=== PATIENT | female | born 1960 | race African-American/Black ===

== ENCOUNTER 2020-03-14 15:17 | Inpatient (IN) | payer MEDICAID, OTHER ==
[~2020-03-14] VITALS: Ht 157.5 cm; Wt 83.0 kg
[2020-03-14] MEDS ORDERED: SODIUM CHLORIDE 0.9% 500 ML IV ONE (15:28)
[2020-03-14 16:05] LABS: CHLORIDE 105 mEq/L (98-107)
[2020-03-14 16:06] LABS: BASOPHILS % 0.5 % (0.0-2.0); EOSINOPHILS % 1.1 % (0.0-5.0); HEMATOCRIT. 41.6 % (36.0-48.0); HEMOGLOBIN. 13.5 g/dL (12.0-16.0); LYMPHOCYTES % 25.4 % (20.0-50.0); MEAN CORPUSCULAR HEMOGLOBIN 27.5 pg (28.0-32.0); MEAN CORPUSCULAR VOLUME 84.4 fL (81.0-99.0); MEAN PLATELET VOLUME 7.2 fl (7.4-10.4); MONOCYTES % 8.2 % (2.0-8.0); NEUTROPHILS % 64.8 % (40.0-76.0); PLATELET 272 x1000/uL (130-400); RED BLOOD CELL COUNT 4.93 mill/uL (4.2-5.4); RED CELL DISTRIBUTION WIDTH 13.6 % (11.6-14.6)
[2020-03-14 16:09] LABS: ETHANOL BLOOD < 10 mg/dL
[2020-03-14 18:46] LABS: CLARITY URINE CLOUDY (CLEAR); COLOR URINE YELLOW (YELLOW); KETONES URINE NEGATIVE (NEGATIVE); LEUKOCYTE ESTERASE URINE 3+ (NEGATIVE); NITRITE URINE NEGATIVE (NEGATIVE); OCCULT BLOOD URINE NEGATIVE (NEGATIVE); PROTEIN URINE NEGATIVE (NEGATIVE); SPECIFIC GRAVITY URINE 1.003 (1.005-1.030)
[2020-03-14 19:02] LABS: *BARBITURATES SCREEN URINE NEGATIVE (NEGATIVE); *BENZODIAZEPINES SCREEN URINE NEGATIVE (NEGATIVE)
[2020-03-14 19:03] LABS: *AMPHETAMINES SCREEN URINE NEGATIVE (NEGATIVE); *COCAINE SCREEN URINE NEGATIVE (NEGATIVE); METHADONE URINE SCREEN NEGATIVE (NEGATIVE); OPIATES URINE SCREEN NEGATIVE (NEGATIVE); PHENCYCLIDINE URINE SCREEN NEGATIVE (NEGATIVE)
[2020-03-14 19:04] LABS: CANNABINOID URINE SCREEN NEGATIVE (NEGATIVE)
[2020-03-14] MEDS ORDERED: CEFTRIAXONE 1 G PREMIX 50 ML IV ONE (19:15)
[2020-03-15 14:32] VITALS: BP 154/96
[2020-03-15 16:00] VITALS: BP_SYST 125; BP_SYST 129; BP_DIAS 79; BP_DIAS 85
[2020-03-15 16:22] VITALS: BP 119/88
[2020-03-15] MEDS ORDERED: ONDANSETRON HCL 4MG/2ML INJ IV PRN (16:30)
[2020-03-15] MEDS ORDERED: ACETAMINOPHEN 325MG TABLET PO PRN (16:30)
[2020-03-15] MEDS: ENOXAPARIN 40MG/0.4ML SYR SUBCUT SCH (17:48)
[2020-03-15 20:00] VITALS: BP 139/85
[2020-03-15] MEDS: CEFTRIAXONE 1 G PREMIX 50 ML IV SCH (22:00)
[2020-03-16] VITALS (7 sets, daily range): BP systolic 116–171; BP diastolic 72–97
[2020-03-16] MEDS ORDERED: CEFTRIAXONE SODIUM 1 G/VIAL IV SCH (09:00)
[2020-03-16] MEDS: CLOPIDOGREL 75MG TABLET PO SCH (09:53)
[2020-03-16] MEDS: ENOXAPARIN 40MG/0.4ML SYR SUBCUT SCH (17:56)
[2020-03-16] MEDS: CEFTRIAXONE 1 G PREMIX 50 ML IV SCH (21:00)
[2020-03-16] MEDS: AMLODIPINE 5MG TABLET PO SCH (21:58)
[2020-03-17] VITALS: BP 144/85
[2020-03-17 04:00] VITALS: BP 148/88
[2020-03-17 08:00] VITALS: BP 170/95
[2020-03-17] MEDS: CLOPIDOGREL 75MG TABLET PO SCH (09:33)
[2020-03-17] MEDS: AMLODIPINE 5MG TABLET PO SCH ×2 (09:33→22:50)
[2020-03-17 12:00] VITALS: BP 149/78
[2020-03-17] MEDS: LOSARTAN POTASSIUM 50 MG TABLET PO SCH (13:56)
[2020-03-17 16:00] VITALS: BP_SYST 105; BP_SYST 131; BP_DIAS 58; BP_DIAS 96
[2020-03-17] MEDS: ENOXAPARIN 40MG/0.4ML SYR SUBCUT SCH (17:14)
[2020-03-17 20:00] VITALS: BP 154/88
[2020-03-17] MEDS: CEFTRIAXONE 1 G PREMIX 50 ML IV SCH (22:50)
[2020-03-18 00:27] VITALS: BP 147/75
[2020-03-18 04:00] VITALS: BP 135/86
[2020-03-18 08:00] VITALS: BP 147/93
[2020-03-18] MEDS: AMLODIPINE 5MG TABLET PO SCH ×2 (08:45→21:18)
[2020-03-18] MEDS: LOSARTAN POTASSIUM 50 MG TABLET PO SCH (08:45)
[2020-03-18] MEDS: CLOPIDOGREL 75MG TABLET PO SCH (08:45)
[2020-03-18 12:00] VITALS: BP 139/86
[2020-03-18 16:00] VITALS: BP 124/68
[2020-03-18] MEDS: NITROFURANTOIN 100MG M/M CAPSULE PO SCH (16:07)
[2020-03-18] MEDS: ENOXAPARIN 40MG/0.4ML SYR SUBCUT SCH (16:27)
[2020-03-18 20:00] VITALS: BP 149/89
[2020-03-19] VITALS: BP 158/92
[2020-03-19 04:00] VITALS: BP 160/90
[2020-03-19] MEDS: CLONIDINE 0.1MG TABLET PO PRN ×2 (05:55→17:04)
[2020-03-19] MEDS: NITROFURANTOIN 100MG M/M CAPSULE PO SCH ×2 (06:02→17:03)
[2020-03-19 08:00] VITALS: BP 161/98
[2020-03-19] MEDS: CLOPIDOGREL 75MG TABLET PO SCH (08:12)
[2020-03-19] MEDS: LOSARTAN POTASSIUM 50 MG TABLET PO SCH ×2 (08:12→21:00)
[2020-03-19] MEDS: AMLODIPINE 5MG TABLET PO SCH ×3 (08:13→20:29)
[2020-03-19 12:00] VITALS: BP 162/85
[2020-03-19] MEDS ORDERED: CLOP75TA15 PO (12:52)
[2020-03-19] MEDS ORDERED: AMLO5TAB88 PO (12:52)
[2020-03-19] MEDS ORDERED: LOSA50TA3 PO (12:52)
[2020-03-19 16:00] VITALS: BP 165/96
[2020-03-19] MEDS: ENOXAPARIN 40MG/0.4ML SYR SUBCUT SCH (17:03)
[2020-03-19 19:59] VITALS: BP 142/82
[2020-03-20] VITALS: BP 164/90
[2020-03-20] MEDS: CLONIDINE 0.1MG TABLET PO PRN (00:40)
[2020-03-20 04:00] VITALS: BP 141/82
[2020-03-20] MEDS: NITROFURANTOIN 100MG M/M CAPSULE PO SCH ×2 (05:37→17:39)
[2020-03-20 08:00] VITALS: BP 133/72
[2020-03-20] MEDS: CLOPIDOGREL 75MG TABLET PO SCH (08:19)
[2020-03-20] MEDS: LOSARTAN POTASSIUM 50 MG TABLET PO SCH ×2 (08:19→21:11)
[2020-03-20 12:00] VITALS: BP 153/85
[2020-03-20 16:00] VITALS: BP 140/85
[2020-03-20] MEDS: ENOXAPARIN 40MG/0.4ML SYR SUBCUT SCH (17:39)
[2020-03-20 20:00] VITALS: BP 149/93
[2020-03-20] MEDS: AMLODIPINE 5MG TABLET PO SCH (21:11)
[2020-03-21 00:23] VITALS: BP 137/69
[2020-03-21 04:00] VITALS: BP 144/77
[2020-03-21] MEDS: NITROFURANTOIN 100MG M/M CAPSULE PO SCH ×2 (06:26→17:10)
[2020-03-21 08:00] VITALS: BP 147/88
[2020-03-21] MEDS: AMLODIPINE 5MG TABLET PO SCH ×2 (08:21→20:57)
[2020-03-21] MEDS: LOSARTAN POTASSIUM 50 MG TABLET PO SCH ×2 (08:21→20:57)
[2020-03-21] MEDS: CLOPIDOGREL 75MG TABLET PO SCH (08:21)
[2020-03-21 12:00] VITALS: BP 161/84
[2020-03-21] MEDS: CLONIDINE 0.1MG TABLET PO PRN (13:25)
[2020-03-21] MEDS ORDERED: HYDR-4135 MT (15:58)
[2020-03-21 16:00] VITALS: BP 144/85
[2020-03-21] MEDS: ENOXAPARIN 40MG/0.4ML SYR SUBCUT SCH (17:10)
[2020-03-21 20:00] VITALS: BP 150/95
[2020-03-21] MEDS: HYDRALAZINE HCL 50MG TABLET PO SCH (20:57)
[2020-03-22] VITALS: BP 135/81
[2020-03-22 04:00] VITALS: BP 137/85
[2020-03-22] MEDS: NITROFURANTOIN 100MG M/M CAPSULE PO SCH ×2 (06:45→17:08)
[2020-03-22 08:00] VITALS: BP 154/88
[2020-03-22] MEDS: AMLODIPINE 5MG TABLET PO SCH ×2 (08:25→21:02)
[2020-03-22] MEDS: HYDRALAZINE HCL 50MG TABLET PO SCH ×2 (08:25→21:02)
[2020-03-22] MEDS: CLOPIDOGREL 75MG TABLET PO SCH (08:25)
[2020-03-22] MEDS: LOSARTAN POTASSIUM 50 MG TABLET PO SCH ×2 (08:25→21:02)
[2020-03-22 12:00] VITALS: BP 154/91
[2020-03-22] MEDS: CLONIDINE 0.1MG TABLET PO PRN (13:07)
[2020-03-22 16:00] VITALS: BP 134/87
[2020-03-22] MEDS: ENOXAPARIN 40MG/0.4ML SYR SUBCUT SCH (17:08)
[2020-03-22 20:00] VITALS: BP 138/93
[2020-03-23] VITALS: BP 152/73
[2020-03-23 04:00] VITALS: BP 132/75
[2020-03-23] MEDS: NITROFURANTOIN 100MG M/M CAPSULE PO SCH (05:34)
[2020-03-23 08:00] VITALS: BP 146/95
[2020-03-23] MEDS: LOSARTAN POTASSIUM 50 MG TABLET PO SCH (08:50)
[2020-03-23] MEDS: HYDRALAZINE HCL 50MG TABLET PO SCH (08:50)
[2020-03-23] MEDS: AMLODIPINE 5MG TABLET PO SCH (08:50)
[2020-03-23] MEDS: CLOPIDOGREL 75MG TABLET PO SCH (08:50)
[2020-03-23 12:00] VITALS: BP 159/87
[2020-03-23 12:44] VITALS: BP 159/87
== END 2020-03-23 14:05 | disposition home or self-care (01) | DRG 463 ==
LOC: ER 15:17 → 6EST 03-15 12:12 → EDBEDREQ 03-15 12:15 → ENRESERV 03-15 13:58 → 6EST 03-15 17:43
PROVIDERS: ADMIT Internal Medicine; ATTEND Internal Medicine
DX: N39.0 Urinary tract infection, site not specified (principal); I69.351 Hemiplegia and hemiparesis following cerebral infarction affecting right dominant side; E66.9 Obesity, unspecified; I10 Essential (primary) hypertension; Z59.0 Homelessness; Z72.89 Other problems related to lifestyle; Z68.33 Body mass index [BMI] 33.0-33.9, adult; Z71.3 Dietary counseling and surveillance
CPT/HCPCS: 36415; 71045; 80053; 80061; 80305; 80320; 81003; 83880; 84484; 85025; 87077; 87186; 93005; 96365; 97112; 97116; 97162; 99285; J0696; J1650; J7040; G0480

== ENCOUNTER 2020-03-31 20:25 | Inpatient (IN) | payer MEDICAID ==
[~2020-03-31] VITALS: Ht 157.5 cm; Wt 78.0 kg
[~2020-03-31 20:25] MED LIST: AMLO5TAB88 PO; CLOP75TA15 PO; HYDR-4135 MT; LOSA50TA3 PO
[2020-03-31 21:45] LABS: BASOPHILS % 0.4 % (0.0-2.0); EOSINOPHILS % 0.7 % (0.0-5.0); HEMATOCRIT. 42.3 % (36.0-48.0); HEMOGLOBIN. 13.8 g/dL (12.0-16.0); LYMPHOCYTES % 18.3 % (20.0-50.0); MEAN CORPUSCULAR HEMOGLOBIN 27.7 pg (28.0-32.0); MEAN CORPUSCULAR VOLUME 84.5 fL (81.0-99.0); MEAN PLATELET VOLUME 7.6 fl (7.4-10.4); MONOCYTES % 5.1 % (2.0-8.0); NEUTROPHILS % 75.5 % (40.0-76.0); PLATELET 262 x1000/uL (130-400); RED CELL DISTRIBUTION WIDTH 13.5 % (11.6-14.6)
[2020-03-31 21:49] LABS: CHLORIDE 104 mEq/L (98-107)
[2020-03-31 21:51] LABS: PROTHROMBIN TIME 11.1 sec (9.6-11.0)
[2020-03-31] MEDS ORDERED: SODIUM CHLORIDE 0.9% 1,000 ML IV ONE (21:52)
[2020-03-31] MEDS ORDERED: ONDANSETRON HCL 4MG/2ML INJ IV STA (21:52)
[2020-03-31] MEDS ORDERED: KETOROLAC 30MG/ML VIAL IV STA (21:52)
[2020-03-31 21:56] LABS: CLARITY URINE CLOUDY (CLEAR); COLOR URINE YELLOW (YELLOW); KETONES URINE NEGATIVE (NEGATIVE); LEUKOCYTE ESTERASE URINE 1+ (NEGATIVE); NITRITE URINE NEGATIVE (NEGATIVE); OCCULT BLOOD URINE NEGATIVE (NEGATIVE); PH URINE 7.5 (4.5-8.0); PROTEIN URINE NEGATIVE (NEGATIVE); SPECIFIC GRAVITY URINE 1.012 (1.005-1.030)
[2020-03-31] MEDS ORDERED: HYDRALAZINE 20MG/ML VIAL IV ONE ×2 (22:00→23:45)
[2020-03-31] MEDS ORDERED: CEFTRIAXONE 1 G PREMIX 50 ML IV ONE (23:30)
[2020-03-31] MEDS ORDERED: PIPERACILLIN/TAZ 3.375G PREMIX 50 ML IV ONE (23:45)
[2020-04-01] MEDS ORDERED: PIPERACILLIN/TAZ 3.375G PREMIX 50 ML IV SCH (01:15)
[2020-04-01] MEDS ORDERED: MORPHINE SULFATE 2 MG/ML CPJ (NOT FOR IM USE) IV PRN ×3 (01:15→18:15)
[2020-04-01] MEDS ORDERED: HYDRALAZINE 20MG/ML VIAL IV PRN (01:15)
[2020-04-01] MEDS ORDERED: DIPHENHYDRAMINE 50MG/ML VIAL IV PRN (01:15)
[2020-04-01] MEDS ORDERED: KETOROLAC 15MG/ML VIAL IV PRN (01:15)
[2020-04-01] MEDS ORDERED: ONDANSETRON HCL 4MG/2ML INJ IV PRN ×3 (01:15→18:15)
[2020-04-01] MEDS ORDERED: ACETAMINOPHEN 650MG SUPP PR PRN ×2 (01:15)
[2020-04-01 03:30] VITALS: BP 143/80
[2020-04-01 04:00] VITALS: BP 151/81
[2020-04-01] MEDS: SODIUM CHLORIDE 0.9% 1,000 ML IV SCH ×2 (06:09→16:26)
[2020-04-01 08:00] VITALS: BP 143/80
[2020-04-01 09:18] LABS: BASOPHILS % 0.6 % (0.0-2.0); HEMATOCRIT. 40.3 % (36.0-48.0); HEMOGLOBIN. 13.1 g/dL (12.0-16.0); LYMPHOCYTES % 17.9 % (20.0-50.0); MEAN CORPUSCULAR HEMOGLOBIN 27.5 pg (28.0-32.0); MEAN CORPUSCULAR VOLUME 84.5 fL (81.0-99.0); MEAN PLATELET VOLUME 7.5 fl (7.4-10.4); MONOCYTES % 7.6 % (2.0-8.0); NEUTROPHILS % 73.9 % (40.0-76.0); PLATELET 231 x1000/uL (130-400); RED BLOOD CELL COUNT 4.77 mill/uL (4.2-5.4); RED CELL DISTRIBUTION WIDTH 13.5 % (11.6-14.6)
[2020-04-01] MEDS: PIPERACILLIN/TAZOBACTAM 3.375 G in DEXT 5% WATER 100 ML IV SCH ×3 (09:56→23:40)
[2020-04-01] MEDS: PANTOPRAZOLE SODIUM 40 MG/VIAL IV SCH (09:56)
[2020-04-01 12:00] VITALS: BP 139/79
[2020-04-01 16:00] VITALS: BP 146/75
[2020-04-01] MEDS ORDERED: BUPIVACAINE HCL 0.5% (5MG/ML) 50ML ONE (16:55)
[2020-04-01] MEDS ORDERED: SKIN ADHESIVE 0.7 GM EA TOP ONE (16:55)
[2020-04-01] MEDS ORDERED: SODIUM CHLORIDE 0.9% 1,000 ML IV ONE (17:07)
[2020-04-01] MEDS ORDERED: HYDROMORPHONE HCL/PF 2MG/ML CPJ IV PRN (17:15)
[2020-04-01] MEDS ORDERED: FENTANYL CITRATE/PF 50MCG/ML 2ML VIAL ONE ×3 (17:17→17:36)
[2020-04-01] MEDS ORDERED: ROCURONIUM BROMIDE 10MG/ML VIAL 5ML IV ONE (17:17)
[2020-04-01] MEDS ORDERED: NEOSTIGMINE METHYLSULFATE 1MG/ML 10 ML VIAL ONE (17:17)
[2020-04-01] MEDS ORDERED: MIDAZOLAM HCL 2 MG/2 ML VIAL ONE (17:17)
[2020-04-01] MEDS ORDERED: GLYCOPYRROLATE 0.2 MG/ML 2ML VIAL ONE (17:18)
[2020-04-01] MEDS ORDERED: SUCCINYLCHOLINE CHLORIDE 200MG/10ML IV ONE (17:18)
[2020-04-01] MEDS ORDERED: EPHEDRINE SULFATE 50MG/ML VIAL ONE (17:18)
[2020-04-01] MEDS ORDERED: METOCLOPRAMIDE HCL 10MG/2ML VIAL ONE (17:18)
[2020-04-01] MEDS ORDERED: SODIUM CHLORIDE 0.9% 10ML VIAL ONE (17:18)
[2020-04-01] MEDS ORDERED: PHENYLEPHRINE HCL 10 MG/ML 1ML (IV VIAL) IV ONE (17:18)
[2020-04-01] MEDS ORDERED: ONDANSETRON HCL 4MG/2ML INJ ONE (17:18)
[2020-04-01] MEDS ORDERED: PROPOFOL 200MG/20ML VIAL IV ONE (17:22)
[2020-04-01] MEDS ORDERED: HYDROCODONE/ACETAMINOPHEN 5/325MG TABLET PO PRN (18:15)
[2020-04-01] MEDS ORDERED: MORPHINE SULFATE 4 MG/ML CPJ (NOT FOR IM USE) IV PRN (18:15)
[2020-04-01 20:00] VITALS: BP 137/74
[2020-04-01] MEDS: SODIUM CHLORIDE 0.9% INJ 3ML FLUSH IVF SCH (21:09)
[2020-04-01] MEDS: DEXT 5%/0.45% NACL KCL 20MEQ/L 1,000 ML IV SCH (23:40)
[2020-04-02] VITALS: BP 138/84
[2020-04-02 04:00] VITALS: BP 115/70
[2020-04-02] MEDS: DEXT 5%/0.45% NACL KCL 20MEQ/L 1,000 ML IV SCH (06:00)
[2020-04-02] MEDS: SODIUM CHLORIDE 0.9% INJ 3ML FLUSH IVF SCH ×3 (06:00→22:26)
[2020-04-02 08:00] VITALS: BP 133/82
[2020-04-02] MEDS: PANTOPRAZOLE SODIUM 40 MG/VIAL IV SCH (08:51)
[2020-04-02] MEDS: PIPERACILLIN/TAZOBACTAM 3.375 G in DEXT 5% WATER 100 ML IV SCH (08:51)
[2020-04-02 12:00] VITALS: BP 142/82
[2020-04-02] MEDS: AMLODIPINE 2.5MG TABLET PO SCH ×2 (13:06→21:26)
[2020-04-02 16:00] VITALS: BP 138/77
[2020-04-02] MEDS: HYDROCODONE/ACETAMINOPHEN 5/325MG TABLET PO PRN ×2 (17:50→22:26)
[2020-04-02 20:00] VITALS: BP 152/73
[2020-04-02] MEDS: ATORVASTATIN CALCIUM 20MG TABLET PO SCH (21:26)
[2020-04-02] MEDS: OMEPRAZOLE 20MG CAPSULE EXTENDED RELEASE PO SCH (21:26)
[2020-04-03] VITALS: BP 141/71
[2020-04-03 04:00] VITALS: BP 132/75
[2020-04-03 08:00] VITALS: BP 148/80
[2020-04-03] MEDS: ASPIRIN 81MG EC TABLET PO SCH (08:13)
[2020-04-03] MEDS: OMEPRAZOLE 20MG CAPSULE EXTENDED RELEASE PO SCH ×2 (08:13→21:07)
[2020-04-03] MEDS: AMLODIPINE 2.5MG TABLET PO SCH (08:14)
[2020-04-03] MEDS: HYDROCODONE/ACETAMINOPHEN 5/325MG TABLET PO PRN ×2 (08:23→15:56)
[2020-04-03 12:00] VITALS: BP 144/78
[2020-04-03] MEDS: SODIUM CHLORIDE 0.9% INJ 3ML FLUSH IVF SCH (14:19)
[2020-04-03 16:00] VITALS: BP 158/87
[2020-04-03 20:00] VITALS: BP 145/75
[2020-04-03] MEDS: ATORVASTATIN CALCIUM 20MG TABLET PO SCH (21:08)
[2020-04-03] MEDS: AMLODIPINE 5MG TABLET PO SCH (21:08)
[2020-04-04] VITALS: BP 160/89
[2020-04-04 04:00] VITALS: BP 154/90
[2020-04-04] MEDS: SODIUM CHLORIDE 0.9% INJ 3ML FLUSH IVF SCH ×4 (05:19→22:36)
[2020-04-04] MEDS: OMEPRAZOLE 20MG CAPSULE EXTENDED RELEASE PO SCH (06:35)
[2020-04-04 08:00] VITALS: BP 155/84
[2020-04-04] MEDS: AMLODIPINE 5MG TABLET PO SCH ×2 (08:44→22:34)
[2020-04-04] MEDS: ASPIRIN 81MG EC TABLET PO SCH (08:44)
[2020-04-04] MEDS: LOSARTAN POTASSIUM 50 MG TABLET PO SCH (10:58)
[2020-04-04 12:00] VITALS: BP 133/76
[2020-04-04 16:00] VITALS: BP 153/79
[2020-04-04 20:00] VITALS: BP 166/88
[2020-04-04] MEDS: FAMOTIDINE 20MG TABLET PO SCH (22:33)
[2020-04-04] MEDS: ATORVASTATIN CALCIUM 20MG TABLET PO SCH (22:34)
[2020-04-05] VITALS: BP 140/80
[2020-04-05 04:00] VITALS: BP 140/79
[2020-04-05] MEDS: FAMOTIDINE 20MG TABLET PO SCH ×2 (06:36→20:59)
[2020-04-05] MEDS: ASPIRIN 81MG EC TABLET PO SCH (08:46)
[2020-04-05] MEDS: LOSARTAN POTASSIUM 50 MG TABLET PO SCH (08:47)
[2020-04-05] MEDS: AMLODIPINE 5MG TABLET PO SCH ×2 (08:47→21:00)
[2020-04-05 12:00] VITALS: BP 137/73
[2020-04-05] MEDS: SODIUM CHLORIDE 0.9% INJ 3ML FLUSH IVF SCH ×2 (13:18→21:00)
[2020-04-05 16:00] VITALS: BP 145/74
[2020-04-05 20:00] VITALS: BP 155/95
[2020-04-05] MEDS: ATORVASTATIN CALCIUM 20MG TABLET PO SCH (20:59)
[2020-04-06] VITALS: BP 162/86
[2020-04-06] MEDS ORDERED: HYDRALAZINE 10 MG in SODIUM CHLORIDE 0.9% 49.5 ML IV PRN (00:45)
[2020-04-06 04:00] VITALS: BP 133/72
[2020-04-06] MEDS: FAMOTIDINE 20MG TABLET PO SCH ×2 (06:18→21:47)
[2020-04-06] MEDS: SODIUM CHLORIDE 0.9% INJ 3ML FLUSH IVF SCH ×2 (06:19→13:19)
[2020-04-06 08:00] VITALS: BP 134/80
[2020-04-06] MEDS: LOSARTAN POTASSIUM 50 MG TABLET PO SCH (09:16)
[2020-04-06] MEDS: ASPIRIN 81MG EC TABLET PO SCH (09:16)
[2020-04-06] MEDS: AMLODIPINE 5MG TABLET PO SCH ×2 (09:16→21:46)
[2020-04-06 12:00] VITALS: BP 129/75
[2020-04-06] MEDS ORDERED: NA PHOS,M-B/NA PHOS,DI-BA ENEMA 118ML PR NR (14:45)
[2020-04-06] MEDS: ENOXAPARIN 40MG/0.4ML SYR SUBCUT SCH (15:10)
[2020-04-06 16:00] VITALS: BP 133/78
[2020-04-06 20:00] VITALS: BP 149/79
[2020-04-06] MEDS: ATORVASTATIN CALCIUM 20MG TABLET PO SCH (21:46)
[2020-04-07] VITALS: BP 147/78
[2020-04-07 04:00] VITALS: BP 136/95
[2020-04-07] MEDS: FAMOTIDINE 20MG TABLET PO SCH (07:33)
[2020-04-07 08:00] VITALS: BP 148/83
[2020-04-07] MEDS: ASPIRIN 81MG EC TABLET PO SCH (08:54)
[2020-04-07] MEDS: LOSARTAN POTASSIUM 50 MG TABLET PO SCH (08:54)
[2020-04-07] MEDS: AMLODIPINE 5MG TABLET PO SCH (08:55)
[2020-04-07 12:00] VITALS: BP 146/87
[2020-04-07] MEDS: SODIUM CHLORIDE 0.9% INJ 3ML FLUSH IVF SCH (14:34)
[2020-04-07 16:00] VITALS: BP_SYST 134; BP_SYST 165; BP_DIAS 87
[2020-04-07] MEDS: ENOXAPARIN 40MG/0.4ML SYR SUBCUT SCH (16:00)
== END 2020-04-07 19:30 | disposition short-term general hospital (02) | DRG 234 ==
LOC: ER 20:25 → 5WST 23:55 → ENRESERV 04-01 01:48 → 6EST 04-02 17:22
PROVIDERS: ADMIT Internal Medicine; ATTEND Internal Medicine
PROC: 0DTJ4ZZ Resection of Appendix, Percutaneous Endoscopic Approach (ICD-10-PCS; principal; 2020-04-01)
DX: K35.80 Unspecified acute appendicitis (principal); I69.351 Hemiplegia and hemiparesis following cerebral infarction affecting right dominant side; D25.9 Leiomyoma of uterus, unspecified; I10 Essential (primary) hypertension; J98.4 Other disorders of lung; N39.0 Urinary tract infection, site not specified; Z82.49 Family history of ischemic heart disease and other diseases of the circulatory system; Z98.82 Breast implant status; Z79.899 Other long term (current) drug therapy; Z98.891 History of uterine scar from previous surgery
CPT/HCPCS: 36415; 71045; 74176; 80053; 81003; 85025; 88304; 93005; 93970; 97116; 97162; 97166; 97530; 99285; C9113; J0330; J0360; J1650; J1885; J2250; J2370; J2405; J2543; J2704; J2710; J2765; J3010; J3490; J7030; J7060